=== PATIENT | female | born 1980 | race Caucasian/White ===

== ENCOUNTER 2016-11-17 13:41 | Emergency (ER) | payer MEDICAID ==
[~2016-11-17] VITALS: Ht 157.5 cm; Wt 84.0 kg
[~2016-11-17 13:41] MED LIST: LEVA750T PO; LORA-474 PO; MUCI600T PO; PERC5TAB12 PO; PRED10PA PO; PROM25TA5 PO; VENTAER INH; VITA1000 PO
[2016-11-17 13:55] VITALS: BP 128/80; PULSE 110; RESP 18; TEMP 99.1; O2SAT 96
[2016-11-17] MEDS ORDERED: SODIUM CHLOR 0.9% 1000 ML INJ 1,000 ML IV ONE (14:30)
--- NOTE | 2016-11-17 14:32 | PD ---
HPI Chief Complaint: Edema Time Seen by Provider: 14:07 Travel History International Travel<30 days: No Contact w/Intl Traveler<30days: No Traveled to known affect area: No History of Present Illness HPI This is a 36-year-old female who presents to the emergency department with swelling in her right lower extremity, constant, worsening associated with a big swollen vein and some pain in her knee and that's been present ever since she was discharged from the hospital early October when she was hospitalized for pneumonia. She denies any shortness of breath but does report that she's been having vomiting and diarrhea for the past 10 days intermittently, with no associated abdominal pain. She thinks is because she is been off of her antacid and her gabapentin. She came in primarily for her leg pain. PFSH Past Medical History Anxiety: Yes Depression: No Cancer: No Cardiovascular Problems: No Diminished Hearing: No Endocrine: No Genitourinary: Yes Immune Disorder: No Kidney Stones: Yes Musculoskeletal: No Neurologic: Yes (neuropathy) Psychiatric: No Reproductive: Yes (tumor fallopian tube (benign) ) Respiratory: Yes (ASTHMA) Immunizations Current: Yes Renal Failure: Yes (HX ARF) Seizures: Yes ("1 seziure r/t kidney failure ") Tetanus Vaccination: < 5 Years Influenza Vaccination: Yes ?: Not : 8 Para: 1 Miscarriage: 7 Dilation and Curettage (D&C): Yes (x4) Past Surgical History Abdominal Surgery: Yes (3 lap, appendectomy) Cholecystectomy: Yes Gynecologic Surgery: Yes (L fallopian tumor (benign), D&C) Other Surgery: Yes Social History Alcohol Use: No Tobacco Use: Yes (1/2 PPD) Substance Use: No Allergies-Medications (Allergen,Severity, Reaction): Coded Allergies: Erythromycin (Unverified Allergy, Severe, Anaphylaxis, 11/17/16) Toradol (Unverified Allergy, Severe, Shortness of Breath, 11/17/16) Guaifenesin (Verified Allergy, Intermediate, heart races, 11/17/16) *MDRO Multi-Drug Resistant Organism (Verified Allergy, Unknown, HX MRSA, ) HX MRSA Reported Meds & Prescriptions Reported Meds & Active Scripts Active No Active Prescriptions or Reported Medications Review of Systems Except as stated in HPI: all other systems reviewed are Neg Physical Exam Narrative GENERAL: Well-nourished, well-developed patient. SKIN: Warm and dry. HEAD: Normocephalic. EYES: No scleral icterus. No injection or drainage. NECK: Supple, trachea midline. CARDIOVASCULAR: Regular rate and rhythm without murmurs. RESPIRATORY: Breath sounds equal bilaterally. No accessory muscle use. GASTROINTESTINAL: Abdomen soft, non-tender, nondistended. MUSCULOSKELETAL: 1+ pitting edema in the right lower extremity absent in the left, tender to palpation along the posterior right calf with some warmth. Data Data Last Documented VS Vital Signs Date Time Temp Pulse Resp B/P Pulse Ox O2 Delivery O2 Flow Rate FiO2 11/17/16 13:55 99.1 110 18 128/80 96 Room Air Orders Complete Blood Count With Diff (11/17/16 14:17) Comprehensive Metabolic Panel (11/17/16 14:17) ^ Insert Iv (11/17/16 14:17) Us Leg Venous Doppler (11/17/16 ) Sodium Chlor 0.9% 1000 Ml Inj (Ns 1000 M (11/17/16 14:30) Labs Laboratory Tests Test 11/17/16 14:45 White Blood Count 12.1 TH/MM3 Red Blood Count 4.96 MIL/MM3 Hemoglobin 14.9 GM/DL Hematocrit 43.6 % Mean Corpuscular Volume 87.9 FL Mean Corpuscular Hemoglobin 30.1 PG Mean Corpuscular Hemoglobin 34.2 % Concent Red Cell Distribution Width 12.4 % Platelet Count 278 TH/MM3 Mean Platelet Volume 7.8 FL Neutrophils (%) (Auto) 68.6 % Lymphocytes (%) (Auto) 23.0 % Monocytes (%) (Auto) 5.5 % Eosinophils (%) (Auto) 2.3 % Basophils (%) (Auto) 0.6 % Neutrophils # (Auto) 8.2 TH/MM3 Lymphocytes # (Auto) 2.8 TH/MM3 Monocytes # (Auto) 0.7 TH/MM3 Eosinophils # (Auto) 0.3 TH/MM3 Basophils # (Auto) 0.1 TH/MM3 CBC Comment DIFF FINAL Differential Comment Sodium Level 140 MEQ/L Potassium Level 3.8 MEQ/L Chloride Level 98 MEQ/L Carbon Dioxide Level 34.1 MEQ/L Anion Gap 8 MEQ/L Blood Urea Nitrogen 11 MG/DL Creatinine 0.86 MG/DL Estimat Glomerular Filtration 74 ML/MIN Rate Random Glucose 103 MG/DL Calcium Level 8.7 MG/DL Total Bilirubin 0.3 MG/DL Aspartate Amino Transf 15 U/L (AST/SGOT) Alanine Aminotransferase 31 U/L (ALT/SGPT) Alkaline Phosphatase 98 U/L Total Protein 8.0 GM/DL Albumin 3.6 GM/DL MDM Medical Decision Making Medical Screen Exam Complete: Yes Emergency Medical Condition: Yes Interpretation(s) Mild leukocytosis Electrolytes reassuring Ultrasound is negative for DVT Differential Diagnosis DVT, superficial thrombophlebitis, Figueroa cyst, cellulitis Narrative Course This is a 36-year-old female who presents to the emergency department with pain in her right lower extremity as well as swelling. Ultrasound was negative for DVT. Labs are reassuring with the exception of a mild leukocytosis may be in the setting of her intermittent nausea and vomiting. I suspect she has a viral syndrome. She is very well-appearing and I think she can be discharged home. I did agree to refill her gabapentin for her neuropathy as well as her pantoprazole if she feels like that's been helping her significantly. Diagnosis Primary Impression: Leg pain Qualified Code: M79.604 - Pain of right lower extremity Patient Instructions: General Instructions Additional Instructions: If you develop severe chest pain, shortness of breath, sweating, lightheadedness , dizziness or difficulty breathing return to the emergency department immediately. Followup with your primary care physician in 2-3 days if your symptoms are not resolved. Med/Other Pt SpecificInfo: Prescription(s) given Scripts Pantoprazole 20 Mg Tab20 Mg PO DAILY #30 TAB Ref 3 Prov:Fatimah Tam MD 11/17/16 Gabapentin 800 Mg Toe370 Mg PO TID #90 TAB Ref 3 Prov:Fatimah Tam MD 11/17/16 Disposition: 01 DISCHARGE HOME Condition: Stable Fatimah Tam MD Nov 17, 2016 14:32
[2016-11-17 14:50] LABS: AUTOMATED NEUTROPHIL # 8.2 TH/MM3 (1.8-7.7); BASOPHIL # 0.1 TH/MM3 (0-0.2); BASOPHIL % 0.6 % (0.0-2.0); EOSINOPHIL # 0.3 TH/MM3 (0-0.4); EOSINOPHIL % 2.3 % (0.0-4.0); HEMATOCRIT 43.6 % (35.0-46.0); HEMO FLAGS DIFF FINAL; LYMPHOCYTE # 2.8 TH/MM3 (1.0-4.8); MEAN CELL VOLUME 87.9 FL (80.0-100.0); MEAN CORPUSCULAR HEMOGLOBIN 30.1 PG (27.0-34.0); MEAN CORPUSCULAR HGB CONC 34.2 % (32.0-36.0); MONO % 5.5 % (0.0-8.0); NEUT % 68.6 % (16.0-70.0); PLATELET COUNT 278 TH/MM3 (150-450); RED BLOOD COUNT 4.96 MIL/MM3 (4.00-5.30); RED CELL DISTRIBUTION WIDTH 12.4 % (11.6-17.2); WHITE BLOOD COUNT 12.1 TH/MM3 (4.0-11.0)
[2016-11-17 15:02] LABS: CHLORIDE 98 MEQ/L (98-107); POTASSIUM 3.8 MEQ/L (3.5-5.1); SODIUM (NA) 140 MEQ/L (136-145)
[2016-11-17 15:06] LABS: ANION GAP 8 MEQ/L (5-15); BICARBONATE 34.1 MEQ/L (21.0-32.0); BLOOD UREA NITROGEN 11 MG/DL (7-18)
[2016-11-17 15:09] LABS: ALT (GPT) 31 U/L (10-53); AST (GOT) 15 U/L (15-37); GLOMERULAR FILTRATION RATE 74 ML/MIN (>89)
[2016-11-17 15:11] LABS: TOTAL BILIRUBIN ADULT 0.3 MG/DL (0.2-1.0)
[2016-11-17 15:12] LABS: ALKALINE PHOSPHATASE 98 U/L (45-117)
--- NOTE | 2016-11-17 15:27 | RADHPO ---
EXAM DATE/TIME: 11/17/2016 19:53 [facility] COMPARISON: No previous studies available for comparison. INDICATIONS : Right leg pain and swelling. MEDICAL HISTORY : Neuropathy. Asthma. Renal failure. SURGICAL HISTORY : Appendectomy. Cholecystectomy. Dilation and curettage. ENCOUNTER: Subsequent ACUITY: 1 week PAIN SCORE: 3/10 LOCATION: Right leg. TECHNIQUE: Venous ultrasound of the leg was performed from the inguinal ligament to the proximal calf. Real-danae e, color Doppler and spectral tracing, compression and augmentation techniques were used. FINDINGS: There is normal compressibility of the deep venous system from the inguinal region to the proximal ca lf. No echogenic clot is seen in the lumen of the common femoral, femoral, popliteal, and posterior tibial veins. There is a normal response of the venous system to proximal and distal augmentation an d respiration. CONCLUSION: Normal examination. No evidence of DVT Sage Abrams MD on November 17, 2016 at 15:25 Board Certified Radiologist. This report was verified electronically.
[2016-11-17] MEDS ORDERED: PANT20TA2 PO (15:38)
[2016-11-17] MEDS ORDERED: GABA800T PO (15:38)
== END 2016-11-17 16:08 | disposition home or self-care (01) ==
LOC: PHED 13:41
DX: M79.604 Pain in right leg (principal); R22.41 Localized swelling, mass and lump, right lower limb; D72.829 Elevated white blood cell count, unspecified; R11.2 Nausea with vomiting, unspecified; F17.200 Nicotine dependence, unspecified, uncomplicated; Z87.01 Personal history of pneumonia (recurrent); Z86.59 Personal history of other mental and behavioral disorders; Z87.448 Personal history of other diseases of urinary system; Z87.442 Personal history of urinary calculi; Z86.69 Personal history of other diseases of the nervous system and sense organs; Z87.09 Personal history of other diseases of the respiratory system; Z87.42 Personal history of other diseases of the female genital tract; Z76.0 Encounter for issue of repeat prescription
CPT/HCPCS: 80053; 85025; 93971; 96360; 99284; J7030

== ENCOUNTER 2017-01-06 11:54 | Emergency (ER) | payer MEDICAID ==
[~2017-01-06] VITALS: Ht 157.5 cm; Wt 83.2 kg
[~2017-01-06 11:54] MED LIST changes: +GABA800T PO; -LEVA750T PO; -LORA-474 PO; -MUCI600T PO; +PANT20TA2 PO; -PERC5TAB12 PO; -PRED10PA PO; -PROM25TA5 PO; -VENTAER INH; -VITA1000 PO
[2017-01-06 12:03] VITALS: BP 135/88; PULSE 101; RESP 20; TEMP 98.5; O2SAT 97
[2017-01-06] MEDS ORDERED: CELE20TA PO (12:43)
[2017-01-06] MEDS ORDERED: LORA-474 PO (12:43)
--- NOTE | 2017-01-06 12:44 | PD ---
HPI Chief Complaint: Anxiety Time Seen by Provider: 12:11 Travel History International Travel<30 days: No Contact w/Intl Traveler<30days: No Traveled to known affect area: No History of Present Illness HPI This 36-year-old female is complaining of anxiety. She has a long history of anxiety. She has seen counselors in the past and has been on a variety of medications. In the past she has had some relief with Xanax and Cymbalta. She has a history of back trouble and takes gabapentin for neuropathy. She also takes Protonix. She is been seeing a family practitioner recently has been tried on medications without response. She has no thoughts of hurting herself. She does have trouble sleeping due to her anxiety PFSH Past Medical History Anxiety: Yes Depression: No Cancer: No Cardiovascular Problems: No Diminished Hearing: No Endocrine: No Genitourinary: Yes Immune Disorder: No Kidney Stones: Yes Musculoskeletal: No Neurologic: Yes (neuropathy) Psychiatric: No Reproductive: Yes (tumor fallopian tube (benign) ) Respiratory: Yes (ASTHMA) Immunizations Current: Yes Renal Failure: Yes (HX ARF) Seizures: Yes ("1 seziure r/t kidney failure ") ?: Unknown LMP: 2 WEEKS AGO : 8 Para: 1 Miscarriage: 7 Dilation and Curettage (D&C): Yes (x4) Past Surgical History Abdominal Surgery: Yes (3 lap, appendectomy) Cholecystectomy: Yes Gynecologic Surgery: Yes (L fallopian tumor (benign), D&C) Other Surgery: Yes Social History Alcohol Use: No Tobacco Use: Yes (1PPD) Substance Use: No Allergies-Medications (Allergen,Severity, Reaction): Coded Allergies: Erythromycin (Unverified Allergy, Severe, Anaphylaxis, 01/06/17) Toradol (Unverified Allergy, Severe, Shortness of Breath, 01/06/17) Guaifenesin (Verified Allergy, Intermediate, heart races, 01/06/17) *MDRO Multi-Drug Resistant Organism (Verified Allergy, Unknown, HX MRSA, ) HX MRSA Reported Meds & Prescriptions Reported Meds & Active Scripts Active Pantoprazole (Pantoprazole Sodium) 20 Mg Tab 20 Mg PO DAILY Gabapentin 800 Mg Tab 800 Mg PO TID Review of Systems General / Constitutional: No: Fever, Chills Eyes: No: Diploplia, Blurred Vision HENT: No: Headaches Cardiovascular: No: Chest Pain or Discomfort, Palpitations Respiratory: No: Cough, Shortness of Breath Genitourinary: No: Urgency, Frequency Skin: No Rash, No Itching Neurologic: No: Weakness Psychiatric: Positive: Anxiety Hematologic/Lymphatic: No: Easy Bruising Physical Exam Narrative GENERAL: Well-developed female SKIN: Warm and dry. HEAD: Atraumatic. Normocephalic. EYES: Pupils equal and round. No scleral icterus. No injection or drainage. ENT: No nasal bleeding or discharge. Mucous membranes pink and moist. NECK: Trachea midline. No JVD. CARDIOVASCULAR: Regular rate and rhythm. No murmur appreciated. RESPIRATORY: No accessory muscle use. Clear to auscultation. Breath sounds equal bilaterally. GASTROINTESTINAL: Abdomen soft, non-tender, nondistended. Hepatic and splenic margins not palpable. MUSCULOSKELETAL: No obvious deformities. No clubbing. No cyanosis. No edema. NEUROLOGICAL: Awake and alert. No obvious cranial nerve deficits. Motor grossly within normal limits. Normal speech. PSYCHIATRIC: Anxious mood; insight and judgment normal. Denies any suicidal ideation Data Data Last Documented VS Vital Signs Date Time Temp Pulse Resp B/P Pulse Ox O2 Delivery O2 Flow Rate FiO2 01/06/17 12:03 98.5 101 20 135/88 97 MDM Medical Decision Making Medical Screen Exam Complete: Yes Emergency Medical Condition: Yes Medical Record Reviewed: Yes Differential Diagnosis Differential includes anxiety, depression, Narrative Course Patient is trying to see a psychiatrist but has been having troubles. I will give her a initial trial of Celexa which has helped her in the past as well as Ativan Diagnosis Primary Impression: Anxiety Scripts Citalopram (Celexa)20 Mg Tab20 Mg PO DAILY #30 TAB Ref 0 Prov:Shekhar Gaines MD 01/06/17 Lorazepam (Ativan)1 Mg Tab1 Mg PO Q8H PRN (ANXIETY AND/OR AGITATION) #20 TAB Ref 0 Prov:Shekhar Gaines MD 01/06/17 Disposition: 01 DISCHARGE HOME Condition: Stable Shekhar Gaines MD Jan 06, 2017 12:44
== END 2017-01-06 12:56 | disposition home or self-care (01) ==
LOC: PHED 11:54
DX: F41.9 Anxiety disorder, unspecified (principal)
CPT/HCPCS: 99283

== ENCOUNTER 2017-01-08 15:50 | Emergency (ER) | payer MEDICAID ==
[~2017-01-08] VITALS: Ht 157.5 cm; Wt 82.0 kg
[~2017-01-08 15:50] MED LIST changes: +CELE20TA PO; +LORA-474 PO
[2017-01-08 16:11] VITALS: BP 120/67; PULSE 94; RESP 14; TEMP 98; O2SAT 98
--- NOTE | 2017-01-08 16:52 | PD ---
HPI Chief Complaint: Allergic/Adverse Reaction Time Seen by Provider: 16:31 Travel History International Travel<30 days: No Contact w/Intl Traveler<30days: No Traveled to known affect area: No History of Present Illness HPI This is a 36-year-old female who presents to the emergency department with a history of anxiety reporting that she was started on Ativan and Citalopram 2 days ago and had an episode where she felt very lightheaded, had a headache and vomited. The episode lasted for about 30 minutes and then subsided. Her symptoms were constant, and moderate severity. Patient reports subsequent to that her mother threw out all of her psychiatric medications including BuSpar, her Ativan and her citalopram. She comes in today for possible change in her medications. She says that the Ativan wasn't working so she was taking double the dose at the time that she had this episode. PFSH Past Medical History Anxiety: Yes Depression: Yes Cancer: No Cardiovascular Problems: No Diminished Hearing: No Endocrine: No Genitourinary: Yes Immune Disorder: No Kidney Stones: Yes Musculoskeletal: No Neurologic: Yes (neuropathy) Psychiatric: No Reproductive: Yes (tumor fallopian tube (benign) ) Respiratory: Yes (ASTHMA) Immunizations Current: Yes Pneumonia: Yes Renal Failure: Yes (HX ARF) Seizures: Yes ("1 seziure r/t kidney failure ") Tetanus Vaccination: > 5 Years Influenza Vaccination: Yes ?: Not LMP: 3 WEEKS AGO : 8 Para: 1 Miscarriage: 7 Dilation and Curettage (D&C): Yes (x4) Past Surgical History Abdominal Surgery: Yes (3 lap, appendectomy) Cholecystectomy: Yes Gynecologic Surgery: Yes (L fallopian tumor (benign), D&C) Other Surgery: Yes Social History Alcohol Use: No Tobacco Use: Yes (1PPD) Substance Use: No Allergies-Medications (Allergen,Severity, Reaction): Coded Allergies: Erythromycin (Unverified Allergy, Severe, Anaphylaxis, 01/08/17) Toradol (Unverified Allergy, Severe, Shortness of Breath, 01/08/17) Guaifenesin (Verified Allergy, Intermediate, heart races, 01/08/17) *MDRO Multi-Drug Resistant Organism (Verified Allergy, Unknown, HX MRSA, ) HX MRSA Reported Meds & Prescriptions Reported Meds & Active Scripts Active Celexa (Citalopram Hydrobromide) 20 Mg Tab 20 Mg PO DAILY Ativan (Lorazepam) 1 Mg Tab 1 Mg PO Q8H PRN Pantoprazole (Pantoprazole Sodium) 20 Mg Tab 20 Mg PO DAILY Gabapentin 800 Mg Tab 800 Mg PO TID Review of Systems Except as stated in HPI: all other systems reviewed are Neg Physical Exam Narrative GENERAL:Well appearing, no acute distress SKIN: Warm and dry. HEAD: Atraumatic. Normocephalic. EYES: Pupils 3 mm, equal and reactive no injection or drainage. ENT: Moist mucous membranes NECK: Trachea midline. CARDIOVASCULAR: Regular rate and rhythm. No murmur appreciated. RESPIRATORY: Clear to auscultation. Breath sounds equal bilaterally. GASTROINTESTINAL: Abdomen soft, non-tender, nondistended. MUSCULOSKELETAL: No obvious deformities. NEUROLOGICAL: Drowsy but awake and interactive. No obvious cranial nerve deficits. Moving all extremities. Data Data Last Documented VS Vital Signs Date Time Temp Pulse Resp B/P Pulse Ox O2 Delivery O2 Flow Rate FiO2 01/08/17 16:26 90 98 Room Air 01/08/17 16:11 98.0 14 120/67 [facility] Medical Decision Making Medical Screen Exam Complete: Yes Emergency Medical Condition: Yes Medical Record Reviewed: Yes (patient was seen here 2 days ago in the emergency department by Dr. Menchaca and prescribed Ativan and citalopram for anxiety) Differential Diagnosis Benzodiazepine overdose, citalopram side effect, anxiety, depression, medication misuse Narrative Course This is a 36-year-old female who presents to the emergency department reporting nausea, headache and dizziness in the setting of taking Ativan and citalopram. On exam she has dilated pupils and appears drowsy and somnolent. She appears to be overmedicated. Her E force demonstrates that she is on buprenorphine which she did not mention here in the ER. Likely this in conjunction with Ativan and citalopram she developed side effects. The patient is trying to show me pictures on her phone of the medications that she threw way to prove to me that she is being honest. Her behavior is unusual and concerning. I don't feel comfortable writing her for any additional anxiety medications from the emergency department as a think she is high risk for misuse. I don't think she is at risk to herself and others and I recommended she follow up at [facility] as an outpatient. Diagnosis Primary Impression: Anxiety Patient Instructions: General Instructions Additional Instructions: Follow up with Dyllan Lieberman in regards to psychiatric or substance related issues at: [address] [place], [place] [id number] Med/Other Pt SpecificInfo: No Change to Meds Disposition: 01 DISCHARGE HOME Condition: Stable Fatimah Tam MD Jan 08, 2017 16:52
== END 2017-01-08 17:05 | disposition home or self-care (01) ==
LOC: PHED 15:50
DX: F41.9 Anxiety disorder, unspecified (principal); R40.0 Somnolence; H57.04 Mydriasis
CPT/HCPCS: 99283

== ENCOUNTER 2017-07-03 14:29 | Emergency (ER) | payer MEDICAID ==
[~2017-07-03] VITALS: Ht 157.5 cm; Wt 83.7 kg
[2017-07-03 14:46] VITALS: BP 133/62; PULSE 106; RESP 16; TEMP 99.3; O2SAT 96
--- NOTE | 2017-07-03 16:23 | PD ---
HPI Chief Complaint: Cold / Flu Symptoms Time Seen by Provider: 15:42 Travel History International Travel<30 days: No Contact w/Intl Traveler<30days: No Traveled to known affect area: No History of Present Illness HPI 36-year-old female presents emergency department for evaluation of cough, fever , right-sided rib pain 3 days. Patient reports she has similar symptoms with pneumonia last year. She denies chest pain or shortness of breath. Symptom severity is mild. No exacerbating or alleviating factors. Pain scale 3/10. PFSH Past Medical History Asthma: Yes (IN PAST) Anxiety: Yes Depression: Yes Cancer: No Cardiovascular Problems: No Diminished Hearing: No Endocrine: No Fibromyalgia: Yes GERD: Yes Genitourinary: Yes Immune Disorder: No Kidney Stones: Yes Musculoskeletal: Yes (DISC DISEASE) Neurologic: Yes (neuropathy) Psychiatric: No Reproductive: Yes (tumor fallopian tube (benign) ) Respiratory: Yes (ASTHMA) Immunizations Current: Yes Pneumonia: Yes Renal Failure: Yes (HX ARF) Seizures: Yes ("1 seziure r/t kidney failure ") Tetanus Vaccination: Unknown Influenza Vaccination: Yes ?: Not LMP: IRREGULAR : 8 Para: 1 Miscarriage: 7 Ectopic : Yes Ovarian Cysts: Yes Dilation and Curettage (D&C): Yes (x4) Past Surgical History Abdominal Surgery: Yes (4 lap, ) Appendectomy: Yes Cholecystectomy: Yes Gynecologic Surgery: Yes (L fallopian tumor (benign), D&C) Other Surgery: Yes Social History Alcohol Use: Yes (OCC) Tobacco Use: Yes (1/2 PK) Substance Use: No Allergies-Medications (Allergen,Severity, Reaction): Coded Allergies: erythromycin base (Unverified Allergy, Severe, Anaphylaxis, 07/03/17) ketorolac (Unverified Allergy, Severe, Shortness of Breath, 07/03/17) guaifenesin (Unverified Allergy, Intermediate, heart races, 07/03/17) *MDRO Multi-Drug Resistant Organism (Verified Allergy, Unknown, HX MRSA, ) HX MRSA Reported Meds & Prescriptions Reported Meds & Active Scripts Active Pantoprazole (Pantoprazole Sodium) 20 Mg Tab 20 Mg PO DAILY Review of Systems Except as stated in HPI: all other systems reviewed are Neg General / Constitutional: Positive: Fever HENT: No: Headaches Cardiovascular: No: Chest Pain or Discomfort Respiratory: Positive: Cough Gastrointestinal: No: Abdominal Pain Genitourinary: No: Dysuria Physical Exam Narrative GENERAL: Well-nourished, well-developed patient. SKIN: Focused skin assessment warm/dry. HEAD: Normocephalic. EYES: No scleral icterus. No injection or drainage. NECK: Supple, trachea midline. No JVD or lymphadenopathy. CARDIOVASCULAR: Regular rate and rhythm without murmurs, gallops, or rubs. RESPIRATORY: Breath sounds equal bilaterally. No accessory muscle use. GASTROINTESTINAL: Abdomen soft, non-tender, nondistended. MUSCULOSKELETAL: No cyanosis, or edema. BACK: Nontender without obvious deformity. No CVA tenderness. Data Data Last Documented VS Vital Signs Date Time Temp Pulse Resp B/P (MAP) Pulse Ox O2 Delivery O2 Flow Rate FiO2 07/03/17 15:06 96 Room Air 07/03/17 15:04 (85) 07/03/17 14:46 99.3 106 16 Orders Orders Chest, Pa & Lat (07/03/17 ) [facility] Medical Decision Making Medical Screen Exam Complete: Yes Emergency Medical Condition: Yes Differential Diagnosis Pneumonia, viral syndrome, URI Narrative Course 36-year-old female with chief complaint of subjective fever, cough, rib pain 3 days. Patient reports similar symptoms with pneumonia in the past. Patient's physical exam is reassuring. Her lung sounds are clear. Her vital signs are stable. Chest x-ray pending Chest X-ray: Negative for consolidation. Air space disease. Patient be treated for viral syndrome. Instructed to follow-up with her primary care doctor. Patient verbalizes understanding and agrees to plan Diagnosis Primary Impression: Viral syndrome Referrals: [facility] Primary Care Physician Additional Instructions: Take [id number] Motrin [id number] milligrams by mouth every 6-8 hours as needed for pain. Follow up with her primary care doctor. Stay well hydrated by drinking plenty of fluids. Return to emergency department if he developed new or worsening symptoms. Disposition: 01 DISCHARGE HOME Condition: Stable Katie Rousseau Jul 03, 2017 16:23
--- NOTE | 2017-07-03 16:31 | RADRPT ---
EXAM DATE/TIME: 07/03/2017 16:00 [facility] COMPARISON: CHEST SINGLE AP, October 13, 2016, 13:34. INDICATIONS : Cough. MEDICAL HISTORY : Neuropathy. Asthma. Renal failure. SURGICAL HISTORY : Appendectomy. Cholecystectomy. Dilation and curettage. ENCOUNTER: Initial ACUITY: 3 days PAIN SCORE: 0/10 LOCATION: Bilateral chest FINDINGS: There is patchy airspace disease at the lung bases right greater than left. Heart size normal. Osseou s structures are intact. CONCLUSION: Mild basilar airspace disease right greater than left. Gabriel Schuler MD on July 03, 2017 at 16:28 Board Certified Radiologist. This report was verified electronically.
== END 2017-07-03 16:50 | disposition home or self-care (01) ==
LOC: PHEFT 14:29
DX: B34.9 Viral infection, unspecified (principal); F17.210 Nicotine dependence, cigarettes, uncomplicated; G62.9 Polyneuropathy, unspecified; J45.909 Unspecified asthma, uncomplicated; K21.9 Gastro-esophageal reflux disease without esophagitis; M79.7 Fibromyalgia; Z90.49 Acquired absence of other specified parts of digestive tract
CPT/HCPCS: 71020; 99283